=== PATIENT | female | born 1990 | race Caucasian/White ===

== ENCOUNTER → 2022-03-28 | Outpatient (CLI) | payer BC, SELFPAY ==
[2022-04-08 18:42] LABS: HPV APTIMA, High Risk Negative (Negative)
== END | disposition home or self-care (01) ==
PROVIDERS: Visit Provider Obstetrics & Gynecology
DX: Z12.4 Encounter for screening for malignant neoplasm of cervix (principal)
CPT/HCPCS: 87624; 88175; G0145

== ENCOUNTER → 2022-07-10 | Outpatient (CLI) | payer BC, SELFPAY | END | disposition home or self-care (01) | LOC: WOBLAB 13:15 | PROVIDERS: Visit Provider Obstetrics & Gynecology | DX: Z34.81 Encounter for supervision of other normal pregnancy, first trimester (principal) | CPT/HCPCS: 36415; 86850 ==

== ENCOUNTER → 2022-07-15 | Outpatient (CLI) | payer BC, SELFPAY ==
[2022-07-15 11:54] LABS: hCG Titer Quant., Serum < 1 mIU/mL (1-3)
== END | disposition home or self-care (01) ==
LOC: WOBLAB 09:30
PROVIDERS: Visit Provider Obstetrics & Gynecology
DX: O20.0 Threatened abortion (principal); Z3A.00 Weeks of gestation of pregnancy not specified
CPT/HCPCS: 36415; 84702

== ENCOUNTER → 2022-08-19 | Outpatient (CLI) | payer BC, SELFPAY ==
[2022-08-19 11:52] LABS: hCG Titer Quant., Serum 32406 mIU/mL (1-3)
== END | disposition home or self-care (01) ==
LOC: WOBLAB 09:50
PROVIDERS: Visit Provider Obstetrics & Gynecology
DX: N91.2 Amenorrhea, unspecified (principal)
CPT/HCPCS: 36415; 84702

== ENCOUNTER → 2022-09-03 | Outpatient (CLI) | payer BC, SELFPAY | END | disposition home or self-care (01) | LOC: WOBLAB 16:12 | PROVIDERS: Visit Provider Obstetrics & Gynecology | DX: N91.2 Amenorrhea, unspecified (principal) | CPT/HCPCS: 87086 ==

== ENCOUNTER → 2022-10-08 | Outpatient (CLI) | payer BC, SELFPAY ==
[2022-10-08 11:48] LABS: Absolute Lymphocyte Count 2.08 X10^3/uL (0.83-4.51); Absolute Neutrophil Count 6.6 X10^3/uL (2.0-7.7); Basophil# 0.04 X10^3/uL; Basophil% 0.4 % (0-1); Eosinophil# 0.16 X10^3/uL; Eosinophils% 1.7 % (0-5); Hematocrit 36.9 % (37-47); Hemoglobin 12.8 g/dL (12.0-15.0); Lymphocyte # 2.08 X10^3/ul (0.83-4.51); Lymphocyte % 21.5 % (19-41); Mean Corp Hgb Conc 34.7 g/dL (32-36); Mean Corpuscular Hgb 31.4 pg (27.0-32.0); Mean Corpuscular Volume 90.7 fL (81-99); Mean Platelet Vol. 9.6 fl (6.2-12.0); Monocyte# 0.62 X10^3/uL; Monocyte% 6.4 % (0-10); NRBC Flagged by Analyzer 0 % (0-5); Neutrophil # 6.64 X10^3/uL (2.7-7.7); Neutrophil % 68.8 % (47-70); Platelet Count 277 K/mm3 (150-450); RBC Distribution Width CV 12.6 % (11.6-14.6); RBC Distribution Width SD 41.3 fl (35.1-43.9); Red Blood Count 4.07 M/mm3 (4.2-5.4); White Blood Count 9.7 K/mm3 (4.4-11.0)
[2022-10-08 12:59] LABS: HIV - WCH Non-Reactive (Nonreactive); Hepatitis B Surface Antigen Non-Reactive (Nonreactive); Hepatitis C Antibody Non-Reactive (Nonreactive); Rubella IgG Reactive (Nonreactive); Syphilis Antibodies Non-reactive
[2022-10-09 06:09] LABS: V-Zoster IgG (Immunity) 2284 index (Immune >165)
== END | disposition home or self-care (01) ==
LOC: WOBLAB 10:48
PROVIDERS: Visit Provider Obstetrics & Gynecology
DX: Z34.82 Encounter for supervision of other normal pregnancy, second trimester (principal)
CPT/HCPCS: 36415; 85025; 86703; 86762; 86780; 86787; 86803; 87340

== ENCOUNTER → 2023-01-07 | Outpatient (CLI) | payer BC, SELFPAY ==
[2023-01-07 15:16] LABS: Absolute Lymphocyte Count 1.75 X10^3/uL (0.83-4.51); Absolute Neutrophil Count 6.6 X10^3/uL (2.0-7.7); Basophil# 0.02 X10^3/uL; Basophil% 0.2 % (0-1); Eosinophil# 0.21 X10^3/uL; Eosinophils% 2.3 % (0-5); Hematocrit 34.3 % (37-47); Hemoglobin 11.5 g/dL (12.0-15.0); Lymphocyte # 1.75 X10^3/ul (0.83-4.51); Lymphocyte % 19.1 % (19-41); Mean Corp Hgb Conc 33.5 g/dL (32-36); Mean Corpuscular Hgb 31.6 pg (27.0-32.0); Mean Corpuscular Volume 94.2 fL (81-99); Mean Platelet Vol. 9.6 fl (6.2-12.0); Monocyte# 0.58 X10^3/uL; Monocyte% 6.3 % (0-10); NRBC Flagged by Analyzer 0 % (0-5); Neutrophil # 6.55 X10^3/uL (2.7-7.7); Neutrophil % 71.7 % (47-70); Platelet Count 277 K/mm3 (150-450); RBC Distribution Width CV 12.5 % (11.6-14.6); RBC Distribution Width SD 43.3 fl (35.1-43.9); Red Blood Count 3.64 M/mm3 (4.2-5.4); White Blood Count 9.2 K/mm3 (4.4-11.0)
[2023-01-07 15:22] LABS: Glucose Challenge Gest 1H 50g 121 mg/dL (70-140)
== END | disposition home or self-care (01) ==
LOC: WOBLAB 14:32
PROVIDERS: Visit Provider Obstetrics & Gynecology
DX: Z34.82 Encounter for supervision of other normal pregnancy, second trimester (principal)
CPT/HCPCS: 36415; 82950; 85025

== ENCOUNTER → 2023-01-28 | Outpatient (CLI) | payer BC, SELFPAY | END | disposition home or self-care (01) | LOC: WOBLAB 13:43 | PROVIDERS: Visit Provider Obstetrics & Gynecology | DX: Z34.83 Encounter for supervision of other normal pregnancy, third trimester (principal) | CPT/HCPCS: 36415; 86850 ==

== ENCOUNTER 2023-04-11 18:52 | Inpatient (IN) | payer BC, SELFPAY ==
[2023-04-11] VITALS (14 sets, daily range): BP systolic 111–148; BP diastolic 58–75; PULSE 68–96; TEMP 36.1–36.9; BMI 24.5
[2023-04-11 20:15] LABS: Basophil# 0.02 X10^3/uL; Basophil% 0.2 % (0-1); Eosinophil# 0.04 X10^3/uL; Eosinophils% 0.3 % (0-5); Hemoglobin 11.2 g/dL (12.0-15.0); Lymphocyte % 13.8 % (19-41); Mean Corp Hgb Conc 32.9 g/dL (32-36); Mean Corpuscular Hgb 30.5 pg (27.0-32.0); Mean Corpuscular Volume 92.6 fL (81-99); Mean Platelet Vol. 10.3 fl (6.2-12.0); Monocyte# 0.88 X10^3/uL; Monocyte% 7.6 % (0-10); NRBC Flagged by Analyzer 0 % (0-5); Neutrophil # 8.98 X10^3/uL (2.7-7.7); Neutrophil % 77.3 % (47-70); Platelet Count 251 K/mm3 (150-450); RBC Distribution Width CV 12.7 % (11.6-14.6); RBC Distribution Width SD 42.5 fl (35.1-43.9); Red Blood Count 3.67 M/mm3 (4.2-5.4); White Blood Count 11.6 K/mm3 (4.4-11.0)
[2023-04-11] MEDS: Oxytocin 10 UNITS/ML Vial IM (20:47)
[2023-04-11] MEDS: Oxytocin 15 Units/NS 250ml 15 UNITS/250 ML IV.SOLN 83 UNITS IV (20:47)
--- NOTE | 2023-04-11 20:51 | HP.PCM.OB_ITS ---
HPI - General General Date of Admission: 04/11/23 HPI Narrative PASTORA TAVERAS, is a 32 F who presents at 39w4d in active labor. Started having contractions today and have picked up in strength. Maternal Data Information TAE Calculator Estimated Delivery Date Method Current WG Current Estimate 04/14/23 Manual 39w 5d PFSH [facility] Medical History (Updated 04/12/23 @ 09:18 by Ronda Mohan CNM) Family history of hearing loss at age younger than 7 years Heart disease Allergy/AdvReac Type Severity Reaction Status Date / Time No Known Allergies Allergy Verified 04/11/23 20:50 Social History Smoking Status: Never smoker History Elective abortions Hx Para 1 Spontaneous abortions Hx # Term Pregnancies Ectopic pregnancies Hx # Pregnancies Multiple births # of living children ROS Constitutional Constitutional: Reports systems reviewed and no addt'l complaints, except as documented; Denies headache(s) Eyes Eyes: Denies acute decrease in peripheral vision, blurry vision or change in vision ENT HEENT: Reports systems reviewed and no addt'l complaints, except as documented Cardiovascular Cardiovascular: Denies chest pain or dizziness Respiratory/Chest Respiratory/Chest: Denies cough, dyspnea, dyspnea on exertion, shortness of breath at rest or shortness of breath with exertion Gastrointestinal Gastrointestinal: Denies abdominal pain, diarrhea, nausea or vomiting Genitourinary Genitourinary: Denies abdominal discomfort Musculoskeletal Musculoskeletal: Denies limited range of motion Integumentary Integumentary: Reports systems reviewed and no addt'l complaints, except as documented Neurologic Neurologic: Reports systems reviewed and no addt'l complaints, except as documented Psychiatric Psychiatric: Reports systems reviewed and no addt'l complaints, except as documented Endocrine Endocrinology: Reports systems reviewed and no addt'l complaints, except as documented Hematologic/Lymphatic Hematologic/Lymphatic: Reports systems reviewed and no addt'l complaints, except as documented Allergic/Immunologic Allergic/Immunologic: Reports systems reviewed and no addt'l complaints, except as documented Vital Signs Vital Signs Vital Signs: 04/11/23 20:43 04/11/23 20:43 04/11/23 20:44 Temperature Temperature Source Temporal Pulse Rate 85 Blood Pressure 148/63 H BP Systolic 148 BP Diastolic 63 04/11/23 20:44 04/11/23 20:49 04/11/23 20:49 Temperature 97.0 F L Temperature Source Pulse Rate 96 Blood Pressure 124/69 H BP Systolic 124 BP Diastolic 69 Weight Weight: 130 lb Body Mass Index (BMI) 24.5 Physical Exam Const alert and oriented x3 General Appearance: cooperative Orientation / Consciousness: awake, oriented to person, oriented to place and oriented to time Exam Limitations: no limitations HEENT normocephalic Head and Scalp: normal to inspection, normocephalic and atraumatic Face and Sinus: normal facial exam Eyes General Eye: normal appearance of both eyes Neck full ROM Chest Chest: symmetrical chest wall rise Resp normal respiratory effort and normal air movement Auscultation: clear to auscultation bilaterally Cardio regular rate, regular rhythm, S1 normal heart sound, S2 normal heart sound, no murmurs, no rub, no gallops and no clicks GI normal to inspection, nondistended, normoactive bowel sounds and non-tender appearance of the vagina normal Bladder / Kidney Exam: no CVA tenderness Back/Spine normal ROM Extremity normal to inspection and full ROM Skin no rashes or lesions noted Neuro oriented x3 and moves all extremities Sensorium / Orientation: awake, alert and oriented to person Labs Labs Labs: Blood Type A NEGATIVE Antibody Screen NEGATIVE Hct 34.0 % (37-47) L Hgb 11.2 g/dL (12.0-15.0) L Syphilis Total Ab Non-reactive VZV IgG Antibody 2284 index (Immune >165) Rubella IgG Antibody Reactive (Nonreactive) Hep Bs Antigen Non-Reactive (Nonreactive) Hepatitis C Antibody Non-Reactive (Nonreactive) HIV 1&2 Antibody Non-Reactive (Nonreactive) Glucose 1 Hr 50 gm 121 mg/dL (70-140) GBS negative GC/CT negative Assessment & Plan (1) Active labor at term: PLAN: Plan 1) Admit to labor and delivery 2) Routine labs 3) GBS negative 4) Continuous EFM, category 2 FHT 5) Planning unmedicated 6) collaborative physician
--- NOTE | 2023-04-11 20:52 | EX.PCM.OBRPT ---
Maternal Data Information TAE Calculator Estimated Delivery Date Method Current Current Estimate 04/14/23 Manual 39w 4d Vaginal Delivery Maternal Presentation Maternal Presentation: Active Labor Operative Information Date of Procedure: 04/11/23 Pre-Operative Diagnosis: Active Labor Post-Operative Diagnosis: Surgery / Procedure Performed: Spontaneous Vaginal Delivery Type of Anesthesia: None Estimated Blood Loss: 200 ml Time of Delivery: 20:38 Findings Description of Procedure: Progressed to complete with urge to push. Unmedicated and hands and knees. of viable female infant over intact perineum. APGARS , respectively. Infant head delivered with body immediately forthcoming. Turned from hands and knees to supine and infant placed on maternal abdomen, strong cry. Mouth and nares suctioned for secretions. Pitocin started for active 3rd stage management. Cord doubly clamped and cut by mother after pulsations ceased, delayed cord clamping. Placenta delivered intact via malik, 3 vessel cord intact. Perineum inspected and revealed intact. Fundus firm and hemostasis achieved. EBL 200ml. Mom and baby stable, planning to breastfeed/pump. Family bonding well. notified of delivery. Presentation: Vertex Amniotic Membrane Rupture Type: Spontaneous Amniotic Fluid Description: Clear Placental Delivery Description: Spontaneous Placenta Disposition: [facility] Cord Vessel Description: 3 Vessels Cord Entanglement: None A Gender: Female (1 minute): 8 (5 minute): 9 Delayed Cord Clamping: Yes Post Vaginal Delivery Medications Given After Delivery: IV Pitocin Episiotomy Description: None Laceration: None Complication Complications: None
[2023-04-12] VITALS (9 sets, daily range): BP systolic 117–129; BP diastolic 64–78; PULSE 72–102; RESP 16; TEMP 36.2–36.9; O2SAT 99
--- NOTE | 2023-04-12 10:16 | PN.OBGYN_ITS ---
Subjective Subjective Doing well per patient and nursing staff. Ambulating and taking PO without difficulty. Voiding and passing flatus. Pain controlled. Pumping breastmilk, services for assistance. Denies headache, visual changes, chest pain, shortness of breath, leg pain or increased bleeding. Lochia normal. Objective Data Objective Data Vital Signs: Vital Signs Temp Pulse Resp BP Pulse Ox O2 Del Method 98.4 F 96 16 126/73 H 99 Room Air 04/12/23 08:29 04/12/23 08:29 04/12/23 08:29 04/12/23 08:29 04/12/23 08:29 04/12/23 08:29 Oxygen Delivery Method Room Air Weight: 130 lb Body Mass Index (BMI) 24.5 Intake & Output: Intake and Output for Last 24 Hours 04/10/23 04/11/23 04/12/23 23:59 23:59 22:59 Intake Total 250 / 250 Output Total 200 / 200 500 / 500 Balance 50 / 50 -500 / -500 Lab / Micro Data 04/11/23 20:00 Labs: Laboratory Results - last 24 hr 04/11/23 20:00: WBC 11.6 H, RBC 3.67 L, Hgb 11.2 L, Hct 34.0 L, MCV 92.6, MCH 30.5, MCHC 32.9, RDW Std Deviation 42.5, RDW Coeff of Maverick 12.7, Plt Count 251, MPV 10.3, Immature Gran % (Auto) 0.800, Neut % (Auto) 77.3 H, Lymph % (Auto) 13.8 L, Shoshone % (Auto) 7.6, Eos % (Auto) 0.3, Baso % (Auto) 0.2, Absolute Neuts (auto) 9.0 H, Absolute Lymphs (auto) 1.60, Nucleated RBC % 0, Blood Type A NEGATIVE, Antibody Screen NEGATIVE 04/11/23 22:30: Screen NEGATIVE, Baby's Blood Type O POSITIVE, Baby's DALE NEGATIVE ROS Constitutional Constitutional: Reports systems reviewed and no addt'l complaints, except as documented; Denies headache(s) Eyes Eyes: Denies acute decrease in peripheral vision, blurry vision or change in vision ENT HEENT: Reports systems reviewed and no addt'l complaints, except as documented Cardiovascular Cardiovascular: Denies chest pain or dizziness Respiratory/Chest Respiratory/Chest: Denies cough, dyspnea, dyspnea on exertion, shortness of breath at rest or shortness of breath with exertion Gastrointestinal Gastrointestinal: Denies abdominal pain, diarrhea, nausea or vomiting Genitourinary Genitourinary: Denies abdominal discomfort Musculoskeletal Musculoskeletal: Denies limited range of motion Integumentary Integumentary: Reports systems reviewed and no addt'l complaints, except as documented Neurologic Neurologic: Reports systems reviewed and no addt'l complaints, except as documented Psychiatric Psychiatric: Reports systems reviewed and no addt'l complaints, except as documented Endocrine Endocrinology: Reports systems reviewed and no addt'l complaints, except as documented Hematologic/Lymphatic Hematologic/Lymphatic: Reports systems reviewed and no addt'l complaints, except as documented Allergic/Immunologic Allergic/Immunologic: Reports systems reviewed and no addt'l complaints, except as documented Physical Exam Const alert and oriented x3 General Appearance: cooperative Orientation / Consciousness: awake, oriented to person, oriented to place and oriented to time Exam Limitations: no limitations HEENT normocephalic Head and Scalp: normal to inspection, normocephalic and atraumatic Face and Sinus: normal facial exam Eyes General Eye: normal appearance of both eyes Neck full ROM Chest Chest: symmetrical chest wall rise Resp normal respiratory effort and normal air movement Auscultation: clear to auscultation bilaterally Cardio regular rate, regular rhythm, S1 normal heart sound, S2 normal heart sound, no murmurs, no rub, no gallops and no clicks GI normal to inspection, nondistended, normoactive bowel sounds and non-tender appearance of the vagina normal Bladder / Kidney Exam: no CVA tenderness Back/Spine normal ROM Extremity normal to inspection and full ROM Skin no rashes or lesions noted Neuro oriented x3 and moves all extremities Sensorium / Orientation: awake, alert and oriented to person Assessment & Plan (1) Vaginal delivery: (2) Lactating mother: PLAN: Plan 1) PPD#1 2) Vitals stable 3) Pain management 4) Planning D/C home tomorrow
[2023-04-12] MEDS: Ibuprofen 600 MG Tablet PO (19:42)
[2023-04-13 03:11] VITALS: BP 116/68; PULSE 88; RESP 16; TEMP 36.5
[2023-04-13 08:50] VITALS: BP 120/69; PULSE 75; RESP 18; TEMP 36.8; O2SAT 99
--- NOTE | 2023-04-13 08:51 | PCM.PN.OB ---
Subjective Subjective pain well controlled, average lochia Objective Data Objective Data Vital Signs: Vital Signs Temp Pulse Resp BP Pulse Ox O2 Del Method 97.7 F L 88 16 116/68 99 Room Air 04/13/23 03:11 04/13/23 03:11 04/13/23 03:11 04/13/23 03:11 04/12/23 08:29 04/13/23 03:11 Oxygen Delivery Method Room Air Weight: 58.967 kg Body Mass Index (BMI) 24.5 Intake & Output: Intake and Output for Last 24 Hours 04/12/23 04/12/23 04/13/23 00:59 23:59 23:59 Intake Total Output Total Balance Lab / Micro Data 04/11/23 20:00 Physical Exam Const alert and no apparent distress Narrative: Fundus firm, below umbilicus. Assessment & Plan (1) Vaginal delivery: PLAN: Plan day #2 status post vaginal delivery. Patient and are doing well. Breast-feeding is going well. Desires discharge home with routine instructions and follow-up
--- NOTE | 2023-04-13 08:52 | PCM.DC.SUM ---
Providers Date of Admission: 04/11/23 Reason For Visit: VAG Diagnosis Discharge Diagnosis (1) Vaginal delivery: Status: Acute Code(s): O80 - Encounter for full-term uncomplicated delivery Plan day #2 status post vaginal delivery. Patient and are doing well. Breast-feeding is going well. Desires discharge home with routine instructions and follow-up Hospital Course Operations None Procedures None Summary of Care Provided Minutes Spent on Discharge: 14 Hospital Course: Patient had a an uncomplicated spontaneous vaginal delivery on 04/11/2023. By day #2 she was ambulating, urinating tolerating regular diet and she was discharged home with routine instructions and follow-up. Weight / BMI Weight Weight: 58.967 kg Body Mass Index (BMI) 24.5 ABG / Lab / Microbiology Data 04/11/23 20:00 D/C Instructions Discharge Diet: No restrictions May resume sexual activity in: 6 weeks Call your doctor if your incision/area has: Continuous Slow Oozing, Sudden Increased Bleeding, Foul Smelling Discharge and Swelling at the incision site Call your doctor if you observe: Fever of 101 or Higher and Inability to urinate Please Follow Up With: Oanh Chaparro MD When: Follow up with our office in 1-2 and 6 weeks or as needed. [phone] Meaningful Use Info Meaningful Use Diagnoses (Choose all that apply): None applicable Discharge Plan Admission Admit Date/Time: 04/11/23 18:52 Primary Reason for Your Visit: Vaginal delivery Attending Provider: Ronda Mohan Disposition Disposition (needs filled in before D/C Order can be placed): Home, Self Care
[2023-04-13 08:57] VITALS: BP 120/69; PULSE 96
--- NOTE | 2023-04-13 14:40 | CASEMGMT ---
Social Work Assessment Labor and Delivery Unit Patient Address:[facility] [place] [address] Phone number: [phone] Date of Referral: 04/12/23 Time of Referral:? [id number] Referred By: Ronda Mohan Date of Intervention: ??04/13/23 Time of Intervention:? 944 Reason for Referral:? mental health Sw completed chart review and acknowledges social work consult due to maternal mental health. MOB talked to bedside RN who informed sw that mother of baby (GISEL Martin) has histroy of anxiety, is doing well now and she does not have any additional concerns. Sw presented to bedside and introduced self to MOB and father of baby (FOB- Roldan) and explained sw role. Sw completed psychosocial assessment and provided list of resources and literature for MOB to review. History obtained from: medical records and mother of baby (ALEKSANDER)?and FOB. Household composition: Currently residing in the family home is ELIE ARMIJO, their 2 year old son, Yogesh, and now baby. MOB states that housing is safe and secure. Patient's parent/guardian status:? ?MOB and FOB have been together for three years. MOB states that they met through mutual friends. No concerns of domestic violence or intimate partner violence. Medical History: ALEKSANDER is 32 year old female who is 3, para 1- now 2 following delivery of baby girl. MOB states that she did experience an miscarriage at 6 weeks in between her son and her . ALEKSANDER delivered baby on 04/11/23 via vaginal delivery at 39 weeks gestation. Baby girl, named Ilan Isaac, was born weighing 6lb 7oz and her apgars were 8 and 9 at one and five minutes of life respectfully. Baby will be followed by [facility] pediatrics in [place]. Educational Status:? Both parents graduated from high school. ALEKSANDER obtained her Bachelor's degree in nursing. FOJaylon does not have any college education. Parents deny any reading, learning or comprehension concerns. Financial Status: Both parents are gainfully employed outside of the hospital. ALEKSANDER works as a nurse, states that when she returns to work in 12 weeks she will only be working one day a week. FOB states that he is a general utility maintenance repairer for a [employer] company. FOB will be able to take 2 weeks off of work. Infant Supplies: ALEKSANDER states that she has obtained all necessary baby supplies including: car seat, safe sleep space, clothes, diapers, wipes and a breast pump. Childcare/Caregiver(s):? When both parents are at work they have support people- grandparents and friends who will be able to provide childcare for baby. Transportation:?? Both parents have their drivers license, and reliable means of transportation. No transportation barriers at this time. Programs/Agencies Involved: ?ALEKSANDER denies being connected to any community agencies. ?? Children Services/Legal Issues:???No history of involvement with Children's Services, no issues or concerns warranting a referral at this time. Behavioral Health Issues: ??Mental Health History:?FOJaylon denies mental health history. ALEKSANDER states that she has not had an official mental health diagnosis, but states that she did struggle with anxiety following the delivery of her first baby.??ALEKSANDER states that she had several medical complications after the delivery of her first baby, and she became very sick. ALEKSANDER stated that directly impacted her mental health, and she started to have intrusive thoughts. ALEKSANDER states that she did bring this concern up to her OBGYN at that time, but did not feel as though her provider at that time listened to her. MOB states that she did not get prescribed any psychotropic medications. Substance Use History: ALEKSANDER denies substance use prior to and during . ?? Family History:??MOB denies family history of substance use and mental health. ??? Drug Screens: No urine screens observed during chart review. ?? Family/Social Stressors:? MOB and FOB deny any stressors or concerns at this time. Support Systems: ALEKSANDER states that she has a lot of family support received from both sides of their families. MOB states that FOB is a good support for her also. MOB states that he always validates her feelings when she is struggling. FOB states that he would be able to recognize if MOB were struggling with mental health during this period and he would be able to support her. Depression/Shaken Baby/Safe Sleeping:? Alex educated parents of signs and symptoms of baby blues and depression/ anxiety. Sw provided parents with literature informing them of signs and symptoms to look for. Sw educated parents on shaken baby prevention and ABCs of safe sleep. Parents expressed understanding. ASSESSMENT:? MOB and baby are admitted following labor and delivery. MOB with mental health history positive for anxiety following the of her first child. MOB with all necessary baby supplies and natural supports in place. MOB talkative and open to discussing her mental health history and experience. FOB quiet during sw assessment but would offer one or two word responses when asked. PLAN:? MOB and baby to be discharged when medically ready. ?No other services requested or indicated. Rony Romo, MACHINE LEAD BURNER, CRITICAL SYSTEMS TECHNICIAN
== END 2023-04-13 10:40 | disposition home or self-care (01) | DRG 807 ==
LOC: WPOUT 18:52 → WP 18:52
PROVIDERS: Admitting Provider Advanced Practice Midwife; Referring Provider Advanced Practice Midwife; Visit Provider Advanced Practice Midwife
DX: O80 Encounter for full-term uncomplicated delivery (principal); Z37.0 Single live birth; Z3A.39 39 weeks gestation of pregnancy
CPT/HCPCS: 59025; 59050; 85025; 85461; 86850; 86900; 86901; 99221; G0378; J2790